=== PATIENT | female | born 1940 | race Caucasian/White ===

== ENCOUNTER 2022-12-10 14:52 | Emergency (ER) | payer MEDICARE ==
[~2022-12-10] VITALS: Ht 157.5 cm; Wt 59.0 kg
[2022-12-10 15:11] VITALS: BP_SYST 136; PULSE 68; RESP 18; TEMP 98.3; O2SAT 85
[2022-12-10] MEDS ORDERED: ONDANSETRON HCL 4 MG/2 ML VIAL IVP ONE (15:15)
[2022-12-10] MEDS ORDERED: NACL 0.9% 1,000 ML IV ONE ×2 (15:15→17:15)
[2022-12-10 15:53] LABS: HEMATOCRIT 25.3 % (36-48); HEMOGLOBIN 8.3 g/dL (12.0-16.0); MEAN CORPUSCULAR HEMOGLOBIN 32 pg (27-31); MEAN CORPUSCULAR HGB CONC 33 % (32-36); MEAN CORPUSCULAR VOLUME 97 fL (79.0-98.0); PLATELET COUNT (AUTO) 239 K/uL (130-430); RED CELL DISTRIBUTION WIDTH 14.3 % (9.0-15.0)
[2022-12-10 16:06] LABS: ANION GAP 11 (5-15); CALCIUM 8.1 mg/dL (8.4-11.0); CHLORIDE 105 mmol/L (98-107); CREATININE 3.16 mg/dL (0.55-1.30); GLUCOSE 122 mg/dL (74-106); UREA NITROGEN, BLOOD 32 mg/dL (8-21)
[2022-12-10 16:18] LABS: ASPARTATE AMINOTRANSFERASE 27 U/L (10-37); LIPASE 47 U/L (73-393); THYROID STIMULATING HORMONE 2.53 uIu/mL (0.34-4.82); TOTAL BILIRUBIN 0.4 mg/dL (0.0-1.0)
[2022-12-10 16:34] LABS: ALANINE AMINOTRANSFERASE 3 U/L (12-78)
[2022-12-10] MEDS ORDERED: cefTRIAXone 1 GM in D5W 50 ML IV ONE (16:45)
[2022-12-10 16:49] LABS: BAND % (MANUAL) 23 % (0-6); BASOPHILS % (MANUAL) 0 % (0-2); EOSINOPHILS % (MANUAL) 0 % (0-7); LYMPHOCYTES % (MANUAL) 0 % (20-46); MONOCYTES % (MANUAL) 6 % (0-11)
[2022-12-10] MEDS ORDERED: cefTRIAXone 1 GM VIAL ONE (16:52)
[2022-12-10] MEDS ORDERED: AZITHROMYCIN 500 MG in NS 250 ML IV ONE (17:00)
[2022-12-10] MEDS ORDERED: AZITHROMYCIN 500 MG/VIAL (ZITHROMAX) IV ONE (17:57)
[2022-12-10 20:11] VITALS: BP_SYST 130; PULSE 86; RESP 23; TEMP 98; O2SAT 92
== END 2022-12-10 20:11 | disposition short-term general hospital (02) ==
LOC: SED 14:52
DX: J18.1 Lobar pneumonia, unspecified organism (principal); R11.10 Vomiting, unspecified; I10 Essential (primary) hypertension; Z85.9 Personal history of malignant neoplasm, unspecified; Z79.899 Other long term (current) drug therapy; Z20.822 Contact with and (suspected) exposure to COVID-19
CPT/HCPCS: 99285; 96365; 70450; 71045; 96367; 96361; 96375; 87426; 85027; 80053; 83690; 84443; 85007; 87040; 84484; 36415; 93005; 76376; 83605; J0456; J0696; J2405; J7030